=== PATIENT | female | born 1990 | race Caucasian/White ===

== ENCOUNTER 2023-12-24 20:13 | Emergency (ER) | payer OTHER, SELFPAY ==
[2023-12-24 20:17] VITALS: BP 142/92
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
== END 2023-12-24 23:47 | disposition home or self-care (01) ==
LOC: EMR 20:13
PROVIDERS: EMERGENCY PHYSICIAN Emergency Medicine
DX: F45.22 Body dysmorphic disorder (principal); Z59.00 Homelessness unspecified; R03.0 Elevated blood-pressure reading, without diagnosis of hypertension
CPT/HCPCS: 99281

== ENCOUNTER 2024-01-25 06:12 | Emergency (ER) | payer OTHER, SELFPAY ==
[2024-01-25 06:14] VITALS: BP 134/84
--- NOTE | 2024-01-25 07:17 | ED.GENMED ---
History of Present Illness
General
Chief Complaint: Extremity Pain (non-traumatic)
Source: patient
Exam Limitations: none
Time Seen by Provider: 01/25/24 07:06
Nursing documentation reviewed up to this point in time: agreed with
Travel History
Have you had any contact with someone who has COVID-19?: No
Do you have any symptoms of coronavirus? Fever > 100 degrees, chills, cough, shortness of breath, sore throat, loss of taste or smell, muscle aches, or headache?: No
History of Present Illness
History of Present Illness:
Patient is a 33-year-old female who tells me she is homeless and complains of feet pain. Patient reports it has been raining outside and she has been walking around. She reports her mom in [place] called her neighbor to get here. She tells
me she believes' people in [place] are putting things in my food.'
Patient denies any recent illness fever chills. Patient denies any suicidal homicidal thoughts.
Past History
Past History
ED Past Medical History: Psychiatric (ADD)
ED Past Surgical History: Other (Plastic surgery/fat transfer procedure to Botox)
Social History
Tobacco: Non-smoker
Alcohol: None
Drug: None
Personal: Single
Living: homeless
Employment: Not employed
Family History
Family History: Other (Noncontributory)
Review of Systems
Review of Systems
Allergies reviewed?: Yes
All Other Systems: ROS reviewed and negative except as documented in HPI and ROS
Constitutional: Reports no symptoms; Denies fever, fatigue or chills
Respiratory: Reports no symptoms
Cardiac: Reports no symptoms
ABD/GI: Reports no symptoms
: Reports no symptoms
Musculoskeletal: Reports other (Patient complains of bilateral foot pain)
Skin: Reports no symptoms
Neurological: Reports no symptoms
Hematologic/Lymphatic: Reports no symptoms
Psychiatric: Reports no symptoms; Denies suicidal or hallucinations
Phy Exam
General Physical Exam
General Presentation: no apparent distress
General age: appears stated age
General Skin: warm and dry
General Habitus: normal
General Mental: alert
General Hydration: appears well hydrated
Cardiovascular Exam
Cardiovascular Exam: regular rate/rhythm, no murmur and normal peripheral pulses
Pulmonary Exam
Pulmonary Exam: lungs clear and no respiratory distress
Neurological Exam
Neurological Exam: alert and oriented x3
Musculoskeletal Exam
Musculoskeletal Exam: other ( b/l feet with strong pulses + small blisters to plantar aspect b/l no drainage no swelling no erythema)
Skin Exam
Skin Exam: normal color and warm/dry
Psychiatric Exam
Psychiatric Exam: paranoia
Course
Orders/Labs/Results
Orders:
Orders
01/25/24 07:19
Foot, Left 3 View [CR Foot - Left Min 3 Views] Urgent
Comment:
Reason For Exam: pain
Foot, Right 3 View [CR Foot - Right Min 3 Views] Urgent
Comment:
Reason For Exam: pain
01/25/24 07:21
Ibuprofen [Motrin] 600 mg PO NOW STA
01/25/24 08:01
Crisis Consult Urgent
Reason for Consult: evaluation
Vital Signs
Initial and Last Documented VS:
Initial Vital Signs
Pulse Resp BP Pulse Ox
84 20 134/84 98
01/25/24 06:14 01/25/24 06:14 01/25/24 06:14 01/25/24 06:14
Last Documented Vital Signs
Temp Pulse Resp BP Pulse Ox
98.6 F 84 20 134/84 98
01/25/24 10:13 01/25/24 06:14 01/25/24 06:14 01/25/24 06:14 01/25/24 06:14
MDM/Problems Addressed
Differential Diagnosis Includes:
Not limited to foot pain, infection, social issue of homelessness
MDM/Problems Addressed:
Patient is a 33-year-old homeless female who presents with bilateral foot pain. Patient has foul-smelling feet; there are small blisters to the plantar aspects of both feet but no obvious infection. She expresses some paranoia as she reports that
she thinks people are putting things in her food in [place]. She denies any stool was advised. She was offered information from both crisis and social sciences instructor for shelters but refused information. She is not suicidal homicidal.
*Pulse Oximetry
Patient hypoxic: no
*Critical Care Note
Total Time (30-74mins, 75-104mins- exclusive of procedures): Not Applicable
ED Attending Note
-
Portions of this chart may have been created with voice recognition software.� Occasional wrong word or��sound alike� substitutions may have occurred due to the inherent limitations of voice recognition software.
Discharge Plan
Departure
Patient Disposition: Home (Routine Discharge)
Date of Disposition: 01/25/24
Time of Disposition: 10:41
Patient with high blood pressure during this ER visit?: Yes
Condition: Fair
Covid-19: Not Applicable
Discharge Problem:
feet pain
Instructions: Muscle and Bone Pain (DC), BLOOD PRESSURE
Referrals:
[facility] [Provider Group]
NONE,* [Family Provider] -
Activity Restrictions/Additional Instructions:
You were given information on local fdc information.
Please try and keep your feet as dry as possible. You may apply antibiotic ointment to the area dry clean dressings/socks.
Follow up as discussed . You were given information on local family residency clinic
Return if any worsening of symptoms
Interventions
Interventions:
*Risk Screen - Suicide Last Done: 01/25/24 06:14
*General Assessment Last Done: 01/25/24 06:25
*Neglect/Abuse Screening Last Done: 01/25/24 06:14
ED- Fall Risk Assessment Last Done: 01/25/24 06:25
*ED COVID-19 Vaccine History Last Done: 01/25/24 06:25
*Nursing Disposition Last Done: 01/25/24 11:16
ED-Skin Assessment Last Done: 01/25/24 06:25
ED-Peripheral Vascular Assessment Last Done: 01/25/24 06:25
ED-Musculoskeletal Assessment Last Done: 01/25/24 06:25
Discharge Date and Time
Discharge Date/Time: 01/25/24 11:16
[2024-01-25] MEDS: MOTRIN 600 MG PO (07:33)
--- NOTE | 2024-01-25 09:23 | CM ---
sales communications manager reviewed patient's chart and met with patient, leather case finisher was consulted to assist with housing as patient is homeless, leather case finisher met with patient and discussed her recent visit in November where patient was provided with detention
information, [facility], and homeless hotline information but patient stated that these agencies were not much help. Patient was also provided with information on [facility]. Patient reports she suspicious of the help that
these agencies offer. sales communications manager explained to patient that these are the only resources available. Patient asked leather case finisher to reach out to her mother in [place] to see if leather case finisher and mother could help with a plan for patient.
Patient is originally from [place], but reports being in this area for a while, patient admits to [facility], and [facility], patient states she was asked to leave [facility] due to her mental health issues. Patient is independent with
adl's and ambulation.
Plan; To provide information on shelters, homeless hotline, [facility], and '[facility]', that provides information, resources and referrals for [facility], message left for patient's mother in [place].
--- NOTE | 2024-01-25 10:28 | ED TECH ---
pt ambulated to nurses station requesting sandwich. Pt given boxed lunch and gingerale. Pt ambulated back to room with steady gait. Pt ambulated back out to nurses station requesting rn field case manager. Pt walked back to room with steady gate and waiting
for CM to finish with EDITOR & CO FOUNDER at this time. Pt standing in room and given ER landline per request to call her mother. Pt standing at beside with steady gait and using phone with no complaints at this time.
== END 2024-01-25 11:16 | disposition home or self-care (01) ==
LOC: EMR 06:12
PROVIDERS: EMERGENCY PHYSICIAN Emergency Medicine
DX: M79.672 Pain in left foot (principal); M79.671 Pain in right foot; R03.0 Elevated blood-pressure reading, without diagnosis of hypertension; Z59.00 Homelessness unspecified
CPT/HCPCS: 99283; 73630